=== PATIENT | male | born 1955 | race Caucasian/White ===

== ENCOUNTER 2025-07-25 15:26 | Emergency (ER) | payer MEDICARE, OTHER ==
[~2025-07-25] VITALS: Ht 172.7 cm; Wt 170.0 kg
[2025-07-25 15:25] VITALS: PULSE 80; RESP 22; O2SAT 91
[2025-07-25 15:30] VITALS: TEMP 37; O2SAT 95
[2025-07-25 15:32] VITALS: PULSE 60; RESP 20; O2SAT 75
[2025-07-25] MEDS ORDERED: VANCOMYCIN 1G PREMIX 200 ML IV ONE (15:45)
[2025-07-25] MEDS ORDERED: ACETAMINOPHEN 650MG/20.3ML UDC NG PRN (15:45)
[2025-07-25] MEDS ORDERED: ACETAMINOPHEN 650MG SUPP PR PRN (15:45)
[2025-07-25 15:54] LABS: CREATININE 1.4 mg/dL (0.6-1.3)
[2025-07-25 15:55] LABS: UREA NITROGEN BLOOD 20 mg/dL (9-23)
[2025-07-25 15:59] VITALS: BP 62/31
[2025-07-25] MEDS: SODIUM CHLORIDE 0.9% (SEPSIS BOLUS) IV ONE (15:59)
[2025-07-25] MEDS: PIPERACILLIN/TAZO 3.375G/50ML 50 ML IV ONE (15:59)
[2025-07-25] MEDS: NOREPINEPHRINE 8MG/250ML PMX 250 ML IV SCH (15:59)
[2025-07-25] MEDS: NOREPINEPHRINE 8MG/250ML PMX 250 ML IV ONE (15:59)
[2025-07-25 16:01] LABS: PHOSPHORUS 11.2 mg/dL (2.5-4.9)
[2025-07-25 16:04] LABS: HEMATOCRIT. 59.0 % (42.0-52.0); HEMOGLOBIN. 18.8 g/dL (14.0-18.0); MEAN PLATELET VOLUME 9.1 fl (7.4-10.4); PLATELET 111 x1000/uL (130-400); RED BLOOD CELL COUNT 6.37 mill/uL (4.7-6.1); RED CELL DISTRIBUTION WIDTH 14.6 % (11.6-14.6)
[2025-07-25 16:20] LABS: TROPONIN I HIGH SENSITIVITY 250 ng/L (3.0-53)
[2025-07-25 16:22] LABS: ASPARTATE AMINOTRANSFERASE 530 IU/L (<34); BILIRUBIN DIRECT 0.8 mg/dL (<=3.0); BILIRUBIN TOTAL 1.4 mg/dL (0.1-1.0); INR 1.9; PROTEIN TOTAL 6.7 g/dL (6.0-8.3)
[2025-07-25 18:21] LABS: ATYPICAL LYMPHOCYTES 2; BAND% 2.0 % (1.0-6.0); LYMPHOCYTES % MANUAL 20.0 % (20.0-50.0); MONOCYTES % MANUAL 5.0 % (2.0-8.0); NEUTROPHILS % MANUAL 71.0 % (45.0-75.0); NUCLEATED RED BLOOD CELLS 3 /100 WBC; PLATELET ESTIMATE DECREASED
== END 2025-07-25 16:46 ==
LOC: ER 15:26 → CANBEDREQ 17:14
DX: I46.9 Cardiac arrest, cause unspecified (principal); E11.9 Type 2 diabetes mellitus without complications; E66.01 Morbid (severe) obesity due to excess calories; E78.5 Hyperlipidemia, unspecified; R06.02 Shortness of breath; I10 Essential (primary) hypertension; J44.9 Chronic obstructive pulmonary disease, unspecified; Z88.5 Allergy status to narcotic agent; Z91.0120 Allergy to eggs, unspecified
CPT/HCPCS: 99291; 92950; 31500; 96365; 71045; 80076; 80048; 82962; 83880; 83605; 83735; 84100; 85025; 85610; 87040; 87076; 87186; 84484; 87077; 36415; 84145; 93005; J3490; J2543; J3373; J7030; 94002; 94664